=== PATIENT | female | born 1935 | race Caucasian/White ===

== ENCOUNTER 2017-05-29 13:11 | Inpatient (IN) | END 2017-06-05 15:36 | disposition home or self-care (01) | DRG 246 ==

== ENCOUNTER 2017-06-21 20:45 | Inpatient (IN) | END 2017-07-06 22:52 | DRG 535 ==

== ENCOUNTER 2017-07-06 00:14 | Inpatient (IN) | END 2017-07-21 15:23 | disposition short-term general hospital (02) | DRG 559 ==

== ENCOUNTER 2017-07-27 19:27 | Inpatient (IN) | END 2017-08-08 12:35 | disposition home health service (06) | DRG 560 ==